=== PATIENT | female | born 1970 | race Hispanic/Latino ===

== ENCOUNTER 2020-09-27 10:41 | Emergency (ER) | payer BC ==
[2020-09-27] MEDS ORDERED: BENZONATATE 100 MG CAP PO ONE (12:02)
--- NOTE | 2020-09-27 12:45 | RAD REPORT ---
EXAM DESCRIPTION: RAD - Chest Single View - 09/27/2020 12:01 pm CLINICAL HISTORY: Cough;Congestion Chest pain. COMPARISON: Chest Single View dated 07/07/2016 FINDINGS: Portable technique limits examination quality. The lungs are grossly clear. The heart is normal in size. No displaced fractures. IMPRESSION: No acute intrathoracic process suspected.
[2020-09-27 12:53] LABS: SARS-COV-2 RT PCR NEGATIVE (NEGATIVE)
--- NOTE | 2020-09-27 13:08 | ER ---
Nurse's Notes [facility] Name: Heidy Juarez Age: 49 yrs Sex: Female : 1970 Arrival Date: 09/27/2020 Time: 10:46 Bed 5 Private MD: Diagnosis: Cough;Acute upper respiratory infection, unspecified;Viral infection, unspecified;Bronchitis, not specified as acute or chronic Presentation: 09/27 10:53 Chief complaint: Patient states: Cough, congestion, sore throat for 8 days. No fever. ll1 Diarrhea has resolved. + fatigue. Coronavirus screen: Client denies travel out of the [place] in the last 14 days. congestion, cough unrelated to allergies, diarrhea, difficulty breathing, fatigue, headache, muscle pain, runny nose, shortness of breath, sore throat, Client presents with at least one sign or symptom that may indicate coronavirus-19. Standard/surgical mask placed on the client. Ebola Screen: Patient denies travel to an Ebola-affected area in the 21 days before illness onset. Resp Distress? No respiratory distress is noted at this time. Initial Sepsis Screen: Does the patient meet any 2 criteria? HR > 90 bpm. No. Patient's initial sepsis screen is negative. Does the patient have a suspected source of infection? Yes: Productive cough/pneumonia. Risk Assessment: Do you want to hurt yourself or someone else? Patient reports no desire to harm self or others. Onset of symptoms was September 19, 2020. 10:53 Method Of Arrival: Ambulatory ll1 10:53 Acuity: MK 3 ll1 Historical: - Allergies: 10:52 No Known Allergies; ll1 - PMHx: 10:52 None; ll1 - PSHx: 10:52 Hernia repair; ; Cholecystectomy; ll1 - Immunization history:: Flu vaccine is not up to date. - Social history:: Smoking status: Patient denies any tobacco usage or history of. Screenin:48 Abuse screen: Denies threats or abuse. Denies injuries from another. Nutritional ss screening: No deficits noted. Tuberculosis screening: Never had TB. Fall Risk None identified. Assessment: 11:48 General: Appears uncomfortable, Behavior is calm, cooperative. General: Reports feeling ss ill for fatigue for x 8 days. Denies fever. Pain: Complains of pain in sore throat Pain currently is 9 out of 10 on a pain scale. Quality of pain is described as sore Pain began 8 days ago Is continuous. Neuro: Level of Consciousness is awake, alert, obeys commands, Oriented to person, place, time, situation. Cardiovascular: Capillary refill < 3 seconds is brisk in bilateral fingers. Respiratory: Reports cough that is hacking, persistent since x 8 days Airway is patent Respiratory effort is even, unlabored, Respiratory pattern is regular, symmetrical, Breath sounds are clear bilaterally. GI: Patient currently denies abdominal pain, diarrhea, nausea, vomiting. : No signs and/or symptoms were reported regarding the genitourinary system. Denies burning with urination, urinary frequency. EENT: Nares are clear Oral mucosa is moist. Throat is reddened. EENT: Reports nasal discharge that is watery x 8 days. Derm: Skin is dry, Skin is pink, warm \\T\\ dry. normal. Musculoskeletal: Circulation, motion, and sensation intact. Range of motion: intact in all extremities, Swelling absent. Vital Signs: 10:53 BP 145 / 64; Pulse 98; Resp 17; Temp 99.1; Pulse Ox 97% on R/A; Weight 104.33 kg; ll1 Height 5 ft. 3 in. (160.02 cm); Pain 9/10; 11:02 BP 131 / 52; Pulse 96; Resp 16; Temp 99.0(O); Pulse Ox 97% on R/A; mh5 12:14 BP 142 / 76; Pulse 80; Resp 18; Pulse Ox 96% on R/A; ss 10:53 Body Mass Index 40.74 (104.33 kg, 160.02 cm) ll1 ED Course: 10:46 Patient arrived in ED. rg4 10:53 Arm band placed on. ll1 10:55 Triage completed. ll1 11:00 John Marsh MD is Attending Physician. kdr 11:02 Patient has correct armband on for positive identification. Bed in low position. Call [facility] light in reach. Pulse ox on. NIBP on. 11:27 Jayleen Macias RN is Primary Nurse. ss 12:53 Flu Sent. mh5 12:53 Strep Sent. 5 12:53 COVID-19 : Document "Date of Symptom Onset" if Symptomatic. Sent. 5 12:53 CORONAVIRUS Sent. 5 12:53 Influenza Screen (A Sent. 5 13:35 No provider procedures requiring assistance completed. Patient did not have IV access vg1 during this emergency room visit. 23:01 RAD In Process Unspecified. EDMS Administered Medications: 11:46 Drug: Tessalon Perle 200 mg Route: PO; Outcome: 13:08 Discharge ordered by . kdr 13:36 Discharged to home ambulatory. vg1 13:36 Condition: stable 13:36 Discharge instructions given to patient, Instructed on discharge instructions, follow up and referral plans. medication usage, Demonstrated understanding of instructions, follow-up care, medications, Prescriptions given X 3. 13:36 Patient left the ED. vg1 Signatures: Dispatcher [employer] EDMS John aMrsh MD MD [facility] Jayleen Macias, RN RN Марина Zhang Maria Rosalia Alves, RN RN vg1 Carolyn Bowman RN RN 1
--- NOTE | 2020-09-27 13:09 | EDPHYS ---
Physician Documentation [facility] Name: Heidy Juarez Age: 49 yrs Sex: Female : 1970 Arrival Date: 09/27/2020 Time: 10:46 Bed 5 Private MD: ED Physician John Marsh HPI: 09/27 16:34 This 49 yrs old Female presents to ER via Ambulatory with complaints of Cough, kdr Congestion, Runny Nose, Sore Throat. 16:34 The patient or guardian reports airway noise, cough, that is intermittent, described as kdr mild, difficulty breathing. Onset: The symptoms/episode began/occurred gradually, 8 day(s) ago. Severity of symptoms: At their worst the symptoms were mild, moderate, just prior to arrival, in the emergency department the symptoms are unchanged. Modifying factors: The symptoms are alleviated by nothing, the symptoms are aggravated by exertion, talking. Associated signs and symptoms: Pertinent positives: chest pain, with cough, with movement, with breathing, sore throat, Pertinent negatives:. The patient has experienced similar episodes in the past, several times. The patient has not recently seen a physician. Historical: - Allergies: 10:52 No Known Allergies; ll1 - PMHx: 10:52 None; ll1 - PSHx: 10:52 Hernia repair; ; Cholecystectomy; ll1 - Immunization history:: Flu vaccine is not up to date. - Social history:: Smoking status: Patient denies any tobacco usage or history of. ROS: 16:34 Constitutional: Negative for fever, chills, and weight loss, Eyes: Negative for injury, kdr pain, redness, and discharge, Neck: Negative for injury, pain, and swelling, Abdomen/GI: Negative for abdominal pain, nausea, vomiting, diarrhea, and constipation, Back: Negative for injury and pain, : Negative for injury, bleeding, discharge, and swelling, MS/Extremity: Negative for injury and deformity, Skin: Negative for injury, rash, and discoloration, Neuro: Negative for headache, weakness, numbness, tingling, and seizure activity. Psych: Negative for depression, anxiety, suicide ideation, homicidal ideation, and hallucinations, Allergy/Immunology: Negative for hives, rash, and allergies, Endocrine: Negative for neck swelling, polydipsia, polyuria, polyphagia, and marked weight changes, Hematologic/Lymphatic: Negative for swollen nodes, abnormal bleeding, and unusual bruising. 16:34 ENT: Positive for sore throat, Negative for injury or acute deformity, ear pain. 16:34 Cardiovascular: Positive for chest pain, of the anterior aspect of right upper chest and anterior aspect of left upper chest, Negative for edema, orthopnea, palpitations, paroxysmal nocturnal dyspnea. 16:34 Respiratory: Positive for cough, with green sputum, dyspnea on exertion, shortness of breath, wheezing, Negative for hemoptysis. Exam: 16:34 Constitutional: This is a well developed, well nourished patient who is awake, alert, kdr and in no acute distress. Head/Face: Normocephalic, atraumatic. Eyes: Pupils equal round and reactive to light, extra-ocular motions intact. Lids and lashes normal. Conjunctiva and sclera are non-icteric and not injected. Cornea within normal limits. Periorbital areas with no swelling, redness, or edema. ENT: Nares patent. No nasal discharge, no septal abnormalities noted. Tympanic membranes are normal and external auditory canals are clear. Oropharynx with no redness, swelling, or masses, exudates, or evidence of obstruction, uvula midline. Mucous membranes moist. Neck: Trachea midline, no thyromegaly or masses palpated, and no cervical lymphadenopathy. Supple, full range of motion without nuchal rigidity, or vertebral point tenderness. No Meningismus. Chest/axilla: Normal chest wall appearance and motion. Nontender with no deformity. No lesions are appreciated. Cardiovascular: Regular rate and rhythm with a normal S1 and S2. No gallops, murmurs, or rubs. Normal PMI, no JVD. No pulse deficits. Abdomen/GI: Soft, non-tender, with normal bowel sounds. No distension or tympany. No guarding or rebound. No evidence of tenderness throughout. Back: No spinal tenderness. No costovertebral tenderness. Full range of motion. Skin: Warm, dry with normal turgor. Normal color with no rashes, no lesions, and no evidence of cellulitis. MS/ Extremity: Pulses equal, no cyanosis. Neurovascular intact. Full, normal range of motion. Neuro: Awake and alert, GCS 15, oriented to person, place, time, and situation. Cranial nerves II-XII grossly intact. Motor strength 5/5 in all extremities. Sensory grossly intact. Cerebellar exam normal. Normal gait. Psych: Awake, alert, with orientation to person, place and time. Behavior, mood, and affect are within normal limits. 16:34 Respiratory: the patient does not display signs of respiratory distress, Respirations: normal, Breath sounds: rhonchi, that are mild, are scattered, are located in both bases. Vital Signs: 10:53 BP 145 / 64; Pulse 98; Resp 17; Temp 99.1; Pulse Ox 97% on R/A; Weight 104.33 kg; ll1 Height 5 ft. 3 in. (160.02 cm); Pain 9/10; 11:02 BP 131 / 52; Pulse 96; Resp 16; Temp 99.0(O); Pulse Ox 97% on R/A; mh5 12:14 BP 142 / 76; Pulse 80; Resp 18; Pulse Ox 96% on R/A; ss 10:53 Body Mass Index 40.74 (104.33 kg, 160.02 cm) ll1 MDM: 13:08 Patient medically screened. [facility] 16:34 Data reviewed: vital signs, nurses notes, EMS record, lab test result(s), EKG, kdr radiologic studies. Counseling: I had a detailed discussion with the patient and/or guardian regarding: the historical points, exam findings, and any diagnostic results supporting the discharge/admit diagnosis, lab results, radiology results, the need for outpatient follow up. 09/27 11:40 Order name: Flu [facility] 09/27 11:40 Order name: Strep [facility] 09/27 11:40 Order name: COVID-19 : Document "Date of Symptom Onset" if Symptomatic. [facility] 09/27 12:18 Order name: Group A Streptococcus Rapid Sc; Complete Time: 13:06 EDMS 09/27 11:40 Order name: CXR XRAY [facility] 09/27 12:47 Order name: RAD [facility] 09/27 12:53 Order name: COVID-19/FLU A+B; Complete Time: 13:06 EDMS Administered Medications: 11:46 Drug: Tessalon Perle 200 mg Route: PO; ss Disposition: 09/27/20 13:08 Discharged to Home. Impression: Cough, Acute upper respiratory infection, unspecified, Viral infection, unspecified, Bronchitis, not specified as acute or chronic. - Condition is Stable. - Discharge Instructions: How to Use an Inhaler, Acute Bronchitis, Vaeh-iu-Xoqf, Upper Respiratory Infection, Adult, Gjnm-oi-Abcj, Cough, Adult, Lkag-sb-Ngpw, Viral Respiratory Infection, Tcjh-Kj-Gaom. - Prescriptions for Prednisone 20 mg Oral Tablet - take 1 tablet by ORAL route once daily for 5 days; 5 tablet. Tessalon Perles 100 mg Oral Capsule - take 1 capsule by ORAL route every 8 hours As needed; 20 capsule. Albuterol Sulfate 90 mcg/actuation - inhale 1-2 puff by INHALATION route every 4-6 hours; 1 Inhaler. - Medication Reconciliation Form, Thank You Letter form. - Follow up: Private Physician; When: 2 - 3 days; Reason: If symptoms return, Further diagnostic work-up, Recheck today's complaints, Continuance of care, Re-evaluation by your physician. - Problem is new. - Symptoms have improved. Signatures: Dispatcher [employer] EDMS John Marsh MD MD kdr Jayleen Macias RN RN ss Rosalia Gonzales RN RN vg1 Carolyn Bowman RN RN ll1 Corrections: (The following items were deleted from the chart) 13:36 13:08 09/27/2020 13:08 Discharged to Home. Impression: Cough; Acute upper respiratory vg1 infection, unspecified; Viral infection, unspecified; Bronchitis, not specified as acute or chronic. Condition is Stable. Forms are Medication Reconciliation Form, Thank You Letter, Antibiotic Education, Prescription Opioid Use. Follow up: Private Physician; When: 2 - 3 days; Reason: If symptoms return, Further diagnostic work-up, Recheck today's complaints, Continuance of care, Re-evaluation by your physician. Problem is new. Symptoms have improved. kdr
[2020-09-28 10:09] VITALS: BP 142/76; TEMP 99; O2SAT 96
== END 2020-09-27 13:36 | disposition home or self-care (01) ==
LOC: MERGE 10:41 → ER 10:41
DX: J40 Bronchitis, not specified as acute or chronic (principal); B34.9 Viral infection, unspecified; Z20.822 Contact with and (suspected) exposure to COVID-19
CPT/HCPCS: 87070; 87081; 0240U; 71045; 99284

== ENCOUNTER 2023-02-02 16:16 | Emergency (ER) | payer BC ==
--- OUTSIDE RECORDS SUMMARY | 2023-02-02 16:19 | XMS REPORT | Continuity of Care Document ---
:1970 Author Organization [facility] t Address [address] [place] [address] [place] [id number] Care Team Providers Name Role Phone RAINER HERNANDEZ Attending Clinician Unavailable LAB90 Attending Clinician Unavailable Rainer Hernandez DO Attending Clinician Payers Payer Name Policy Type Policy Number Effective Date Expiration Date [place] [facility] 2 [id number] 2022 00:00:00 Problems Condition Condition Condition Status Onset Resolution Last Treating Co mments Source Name Details Category Date Date Treatment Clinician Date Migraine Migraine Disease Active Kelse y with aura with aura 9 Seyb old and and 00:00: - without without 00 Externa status status l migrainosu migrainosu s, not s, not intractabl intractabl e e Seasonal Seasonal Disease Active Kelse y allergic allergic 04-04 Seybol d rhinitis rhinitis 00:00: - due to due to 00 Externa pollen pollen l Well adult Well adult Disease Active K elsey exam exam 04-04 Seybold 00:00: - 00 Externa l Allergies, Adverse Reactions, Alerts This patient has no known allergies or adverse reactions. Social History Social Habit Start Date Stop Date Quantity Comments Source History of tobacco Cigarette Smoker Carol Santana - use External History SDOH Carol brock - Alcohol Frequency Externa l History SDOH Carol brock - Alcohol Std Drinks Extract Operator al History ALEXANDRAID Carol brock - Alcohol Binge External Cigarettes smoked 2022-04-04 2022-04-04 Carol Santana - current (pack per 00:00:00 00:00:00 Externa l day) - Reported Cigarette 2022-04-04 2022-04-04 Carol Basspriyanka - pack-years 00:00:00 00:00:00 External Tobacco use and 2022-04-04 2022-04-04 Smokeless tobacco Sree andersontatum Santana - exposure 00:00:00 00:00:00 non-user External Alcohol intake 2022-04-04 2022-04-04 Current drinker Bob Basspriyanka - 00:00:00 00:00:00 of alcohol External (finding) Alcohol Comment 2022-04-04 2022-04-04 social Carol callahan - 00:00:00 00:00:00 External Education 2022-04-04 2022-04-04 16 Caroltien Santana - 00:00:00 00:00:00 External Sex [birth year] F Carol Se callahan - 00:00:00 00:00:00 External Smoking Status Start Date Stop Date Source Occasional tobacco smoker 2022-04-04 00:00:00 Sree Santana - External Medications Ordered Filled Start Stop Current Ordering Indication Dosage Frequency Signature Comments Components Source Medication Medication Date Date Medication? Clinician (SIG) Name Name Cetirizine Yes [id number] 10mg Take 1 K elsey HCl (ZyrTEC 9-13 capsule Seybo ld Allergy) 10 00:00: (10 mg - MG oral 00 total) by Externa Capsule mouth l daily FLUTICASONE Yes [id number] 50ug Use 1 K elsey PROPIONATE, 9-13 spray (50 Sey bold NASAL, 50 00:00: mcg total) - MCG/ACT 00 in each Externa nasal nostril l Suspension daily Meloxicam 2021- No 7.5mg Take 7.5 Sree jaramillo 7.5 MG oral 8-23 12-28 mg by Seybol d Tablet 00:00: 00:00 mouth - 00 :00 daily Externa l Immunizations Ordered Immunization Filled Immunization Date Status Commen ts Source Name Name Tdap- (Boostrix, 2018-09-15 Completed Carol menon Adacel) 00:00:00 - External Influenza Virus 2018-09-15 Completed Carol callahan Vaccine, Quad, Egg 00:00:00 - Exte rnal Free Procedures This patient has no known procedures. Encounters Start End Encounter Admission Attending Care Care Encounter Source Date/Time Date/Time Type Type Clinicians Facility Department ID 2022-11-04 2022-11-04 Outpatient CAROL HERNANDEZ [id number] Carol 00:00:00 00:00:00 RAINER Seybol d 2022-07-25 2022-07-25 Outpatient CAROL HERNANDEZ [id number] Carol 00:00:00 00:00:00 RAINER Seybol d 2022-07-24 2022-07-24 Outpatient LAB90 CAROL MEDINA [id number] Carol 14:30:00 14:30:00 Seybol d 2022-07-24 2022-07-24 Outpatient CAROL HERNANDEZ [id number] Carol 11:15:00 11:15:00 RAINER Seybol d 2022-04-25 2022-04-25 Outpatient CAROL HERNANDEZ [id number] Carol 14:30:00 14:30:00 RAINER Seybol d 2022-04-09 2022-04-09 Outpatient LAB90 CAROL MEDINA [id number] Carol 09:20:00 09:20:00 Seybol d 2022-04-05 2022-04-05 Outpatient CAROL HERNANDEZ [id number] Carol 00:00:00 00:00:00 RAINER Seybol d 2022-04-04 2022-04-04 Office Aleksey Hernandez [id number] Carol 14:15:00 14:45:00 Visit Rainer He [id number] Se ybold [id number] 2022-04-04 2022-04-04 Outpatient CAROL HERNANDEZ [id number] Carol 10:00:00 10:00:00 RAINER Seybol d Results This patient has no known results.
[2023-02-02] MEDS ORDERED: NA CHLORIDE 0.9% 1,000 ML ONE (17:12)
[2023-02-02] MEDS ORDERED: KETOROLAC 30 MG/ML INJ ONE (17:12)
[2023-02-02 17:18] LABS: Specific Gravity 1.011 (1.005-1.030)
[2023-02-02 17:21] LABS: Hematocrit 42.2 % (36.0-45.0); Lymphocytes % 31.4 % (15.3-44.8); MCV 83.7 fL (80-100); MPV 8.3 fL (7.6-11.3); RBC Red Blood Cell Count 5.04 M/uL (3.86-4.86)
[2023-02-02 17:22] LABS: Specific Gravity 1.011 (1.005-1.030); Urine Bacteria None Seen /HPF (<20); Urine Bilirubin NEGATIVE (Negative); Urine Blood 3+ (OVER) (Negative); Urine Clarity Clear (Clear); Urine Color Colorless (Yellow); Urine Glucose NEGATIVE (Negative); Urine Mucus Slight /HPF (None Seen); Urine Protein NEGATIVE (Negative); Urine RBC <5 /HPF (None Seen); Urine Urobilinogen Normal (Normal)
[2023-02-02 17:37] LABS: Albumin 3.5 g/dL (3.4-5.0); Bilirubin Total 0.5 mg/dL (0.2-1.0); Potassium 3.8 mEq/L (3.5-5.1); Protein, Total 7.5 g/dL (6.4-8.2)
--- NOTE | 2023-02-02 19:59 | RAD REPORT ---
EXAM DESCRIPTION: CT - Abdomen Pelvis W Contrast - 02/02/2023 7:16 pm CLINICAL HISTORY: rectal pain;Abd pain COMPARISON: CT ABD PELVIS W CONTRAST dated 10/13/2015; CT ABD PELVIS W CONTRAST dated 10/10/2014; CT A BD PELVIS W CONTRAST dated 08/24/2013 TECHNIQUE: Thin cut axial CT imaging of the abdomen and pelvis was performed following intravenous a dministration of Isovue 300. Multiplanar reformats were generated and reviewed. All CT scans are performed using dose optimization technique as appropriate and may include automated exposure control or mA/KV adjustment according to patient size. FINDINGS: No suspicious findings in the lung bases. The liver shows diffuse parenchymal hypoattenuation suggesting steatosis. Adrenal glands, spleen, and pancreas show no suspicious findings. Post cholecystectomy. Symmetric renal function is seen with no hydronephrosis or suspicious renal mass. No dilated bowel loops or bowel wall thickening. No free air, free fluid or inflammatory stranding. N o intra-abdominal adenopathy or mass. Large fat containing supraumbilical lobulated hernia, measuring 1.9 centimeter in greatest dimension at the neck, and 11.8 x 6.4 centimeter in greatest axial dimens ions. The urinary bladder is without significant finding. Hypoattenuating heterogenous ovoid mass at the cervix measuring 6.9 x 4.7 cm. Increasing fluid retent ion within the endometrium. Small right adnexal cysts are noted. No suspicious bony findings. IMPRESSION: Hypoattenuating heterogeneous ovoid mass or collection at the level of the uterine cervi x measuring 6.9 x 4.7 centimeter. Possibilities include cervical malignancy, a degenerating cervical fibroid, among other considerations. Additional evaluation by dedicated pelvic ultrasound or MRI may be helpful. Gynecologic consultation would also be recommended. Other incidental findings including a large supraumbilical ventral midline fat containing hernia, and sequelae of hepatic steatosis.
--- NOTE | 2023-02-02 21:55 | RAD REPORT ---
EXAM DESCRIPTION: US - Pelvis Complete - 02/02/2023 8:44 pm CLINICAL HISTORY: pelvic pain COMPARISON: Abdomen Pelvis W Contrast dated 02/02/2023 TECHNIQUE: Sonographic grayscale and color flow images of the pelvis were obtained flow transabdomi nal approach. FINDINGS: A large cystic lesion is present in the cervix, extending into the lower endometrial cavit y, with thin septations, and a fluid fluid level, with echogenic material in the dependent portion. T his measures 10.3 x 4.5 centimeter in greatest sagittal dimensions and 6.2 centimeter in greatest tra nsverse dimension. Uterus measures 14.2 centimeter in length. Prominent echogenic margins of the endometrium, overall me asuring 2.1 centimeter in thickness. Both ovaries are normal in size, shape and echotexture. The right ovary measures 2.9 x 2.8 x 2.9 tania timeter. Contains an anechoic 2.9 centimeter cyst. The left ovary measures 2.8 x 1.6 x 1.5 centimete r. No other ovarian or parovarian lesions. No adnexal masses. Normal Doppler blood flow was demonstrated to both ovaries. No significant pelvic ascites. IMPRESSION: Complex cystic lesion in the cervix containing fluid fluid level, with dependent echogen ic content, suggesting layering hemorrhagic content. Thin septations are present internally. This is not entirely specific, and could represent cystic degeneration of a fibroid, a complicated nabothian cyst, less likely hemorrhage within a cystic space related to adenomyosis. Incidentally noted 2.9 centimeter right ovarian cyst.
--- NOTE | 2023-02-02 22:57 | EDPHYS ---
Physician Documentation [facility] Name: Heidy Juarez Age: 52 yrs Sex: Female : 1970 Arrival Date: 02/02/2023 Time: 16:16 Bed 20 Private MD: ZULEYMA Physician Dimitry Palma HPI: 02/02 17:00 This 52 yrs old Female presents to ER via Ambulatory with complaints of Pelvic cp Pain, Rectal Pain. 17:00 The patient presents with abdominal pain in the lower abdomen, pelvic pain. cp 17:00 Onset: The symptoms/episode began/occurred this morning. The patient presents to the emergency department with pain in the rectal area. Onset: The symptoms/episode began/occurred this morning. The symptoms do not radiate. Associated signs and symptoms: Pertinent positives: vaginal bleeding, Pertinent negatives: anorexia, blood in stools, constipation, diarrhea, fever. Severity of pain: in the emergency department the pain is unchanged despite home interventions. Associate signs and symptoms: Pertinent negatives: dysuria, fever, lower GI bleeding. Patient reports known abdominal hernia and having been evaluated in the past by DR Hewitt for repair of hernia. Has been unable to f/u for surgical repair of hernia due to lack of insurance. 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 - Social history:: Smoking status: Patient reports the use of cigarette tobacco products, denies chronic smoking, but will smoke occasionally. ROS: 17:05 Constitutional: Negative for body aches, chills, fever, poor PO intake. cp 17:05 ENT: Negative for drainage from ear(s), ear pain, sore throat, difficulty swallowing, cp difficulty handling secretions. 17:05 Cardiovascular: Negative for chest pain, palpitations. 17:05 Respiratory: Negative for cough, shortness of breath, wheezing. 17:05 Abdomen/GI: Positive for abdominal pain, nausea, rectal pain, Negative for vomiting, diarrhea, constipation, black/tarry stool, rectal bleeding. 17:05 Back: Positive for radiated pain, Negative for injury or acute deformity, decreased range of motion. 17:05 : Positive for pelvic pain, Negative for hematuria, difficulty urinating, vaginal bleeding, vaginal discharge. 17:05 Neuro: Negative for altered mental status, dizziness, headache, weakness. 17:05 All other systems are negative. Exam: 17:10 Constitutional: The patient appears in no acute distress, alert, awake, cp non-diaphoretic, non-toxic, well developed, well nourished, obese, uncomfortable. 17:10 Head/Face: Normocephalic, atraumatic. cp 17:10 Eyes: Periorbital structures: appear normal, Conjunctiva: normal, no exudate, no injection, Sclera: no appreciated abnormality, Lids and lashes: appear normal, bilaterally. 17:10 ENT: External ear(s): are unremarkable, Nose: is normal, Mouth: Lips: moist, Oral mucosa: pink and intact, moist, Posterior pharynx: is normal, airway is patent, no erythema, no exudate. 17:10 Chest/axilla: Inspection: normal. 17:10 Cardiovascular: Rate: normal, Rhythm: regular. 17:10 Respiratory: the patient does not display signs of respiratory distress, Respirations: normal, no use of accessory muscles, no retractions, labored breathing, is not present, Breath sounds: are clear throughout, no decreased breath sounds, no stridor, no wheezing. 17:10 Abdomen/GI: Inspection: obese Bowel sounds: active, all quadrants, Palpation: soft, in all quadrants, moderate abdominal tenderness, in the right lower quadrant and left lower quadrant, rebound tenderness, is not appreciated, involuntary guarding, is not appreciated. 17:10 Back: pain, is absent, ROM is normal, CVA tenderness, is absent. 17:10 Skin: cellulitis, is not appreciated, no rash present. Vital Signs: 16:24 BP 140 / 63; Pulse 68; Resp 16; Temp 98.8(O); Pulse Ox 100% on R/A; Weight 108.86 kg; vg1 Height 5 ft. 3 in. ; Pain 9/10; 17:35 BP 120 / 58; Pulse 69; Resp 18; Pulse Ox 100% on R/A; db 18:30 BP 133 / 66; Pulse 64; Resp 18; Pulse Ox 100% on R/A; cm10 19:30 BP 112 / 57; Pulse 65; Resp 18; Pulse Ox 100% on R/A; cm10 20:00 BP 118 / 56; Pulse 67; Resp 18; Pulse Ox 100% on R/A; cm10 21:00 BP 114 / 60; Pulse 67; Resp 16; Pulse Ox 97% on R/A; cm10 22:00 BP 118 / 51; Pulse 73; Resp 16; Pulse Ox 100% on R/A; cm10 16:24 Body Mass Index 42.51 (108.86 kg, 160.02 cm) vg1 16:24 Pain Scale: Adult vg1 MDM: 16:35 Patient medically screened. cp 22:55 Data reviewed: vital signs, nurses notes, lab test result(s), radiologic studies, CT cp scan, ultrasound. 22:55 Differential diagnosis: hemorrhoids, fissure, abscess, pilonidal cyst, gastritis, cp non-specific abd pain, Pyelonephritis, Ureterolithiasis, urinary tract infection. Consideration of Admission/Observation Escalation of care including admission/observation considered. I considered the following discharge prescriptions or medication management in the emergency department Medications were administered in the Emergency Department. See MAR. Counseling: I had a detailed discussion with the patient and/or guardian regarding: the historical points, exam findings, and any diagnostic results supporting the discharge/admit diagnosis, lab results, radiology results, the need for outpatient follow up, an OB/Gyne specialist, to return to the emergency department if symptoms worsen or persist or if there are any questions or concerns that arise at home. Response to treatment: the patient's symptoms have mildly improved after treatment, and as a result, I will discharge patient. 02/02 16:49 Order name: CBC with Diff; Complete Time: 17:39 cp 02/02 17:39 Interpretation: Normal except: RBC 5.04; MCH 26.7; MCHC 31.9. cp 02/02 16:49 Order name: CMP; Complete Time: 17:39 cp 02/02 17:40 Interpretation: Normal except: CL 108; GLUC 111; AST 11; GLOB 4.0; A/G 0.9. cp 02/02 16:49 Order name: Lipase; Complete Time: 17:39 cp 02/02 16:49 Order name: Test, Urine; Complete Time: 17:39 cp 02/02 16:49 Order name: Urinalysis w/ reflexes; Complete Time: 17:39 cp 02/02 17:40 Interpretation: Normal except: UBLD 3+ (OVER). cp 02/02 17:15 Order name: CT Abd/Pelvis - PO and IV Contrast; Complete Time: 20:14 cp 02/02 20:19 Order name: US Pelvis Complete; Complete Time: 21:56 cp 02/02 16:49 Order name: IV Saline Lock; Complete Time: 17:00 cp 02/02 16:49 Order name: Labs collected and sent; Complete Time: 17:00 cp Administered Medications: 17:00 CANCELLED (Physician Discretion): morphine IVP or IV 4 mg IVP once over 4 mins cp 17:12 Drug: NS 0.9% IV 1000 ml Route: IV; Rate: 500 ml/hr; Site: left forearm; cm10 21:32 Follow up: IV Status: Completed infusion; IV Intake: 1000ml cm10 17:12 Drug: Ketorolac IVP 15 mg Route: IVP; Site: left forearm; cm10 18:37 Follow up: Response: No adverse reaction cm10 18:38 Not Given (Patient Refused): Ondansetron IVP 4 mg IVP once; over 2 minutes cm10 Disposition Summary: 02/02/23 22:57 Discharge Ordered Location: Home cp Problem: new cp Symptoms: have improved cp Condition: Stable cp Diagnosis - Other ovarian cysts cp - Other specified abdominal hernia without obstruction or gangrene cp Followup: cp - With: Gabriela Sainz MD - When: 1 week - Reason: pain continues Followup: cp - With: Abrahan Hewitt MD - When: 1 week - Reason: hernia Discharge Instructions: - Discharge Summary Sheet cp - Hernia, Adult cp - Ovarian Cyst cp Forms: - Medication Reconciliation Form cp - Thank You Letter cp - Antibiotic Education cp - Prescription Opioid Use cp - [email or web address] cp Prescriptions: - Diclofenac Sodium 75 mg Oral Tablet Sustained Release - take 1 tablet by ORAL route 2 times per day; 30 tablet; Refills: 0, Product cp Selection Permitted Signatures: Dispatcher [employer] EDDimitry Kamara PA PA cp Garcia, Victoria RN RN vg1 Mansi Cruz RN RN cm10 Corrections: (The following items were deleted from the chart) 17:00 16:49 morphine IVP or IV 4 mg IVP once over 4 mins ordered. cp cp
--- NOTE | 2023-02-02 22:57 | ER ---
Nurse's Notes [facility] Name: Heidy Juarez Age: 52 yrs Sex: Female : 1970 Arrival Date: 02/02/2023 Time: 16:16 Bed 20 Private MD: Diagnosis: Other ovarian cysts;Other specified abdominal hernia without obstruction or gangrene Presentation: 02/02 16:24 Chief complaint: Patient states: Rectal pain that began this morning, with N/V, BM this vg1 morning was soft "not normal", also stated lower ABD and pelvic pain; denies blood in stool. States vaginal bleeding x 10 days and last LMP was Six months ago. Coronavirus screen: Vaccine status: Patient reports receiving the 2nd dose of the covid vaccine. Client denies travel out of the [place] in the last 14 days. Ebola Screen: Patient negative for fever greater than or equal to 101.5 degrees Fahrenheit, and additional compatible Ebola Virus Disease symptoms Patient denies exposure to infectious person. Patient denies travel to an Ebola-affected area in the 21 days before illness onset. Initial Sepsis Screen: Does the patient meet any 2 criteria? No. Patient's initial sepsis screen is negative. Does the patient have a suspected source of infection? No. Patient's initial sepsis screen is negative. Risk Assessment: Do you want to hurt yourself or someone else? Patient reports no desire to harm self or others. Onset of symptoms was February 02, 2023. 16:24 Method Of Arrival: Ambulatory vg1 16:24 Acuity: MK 3 vg1 Triage Assessment: 16:27 General: Appears uncomfortable, Behavior is cooperative. Pain: Complains of pain in vg1 buttocks, right lower quadrant, left lower quadrant and pelvis Pain currently is 9 out of 10 on a pain scale. Pain began this morning. GI: Abdomen is round Stools are reported to be "soft" . Last BM was February 02, 2023. Reports nausea, vomiting. : Reports vaginal bleeding that is bright red. 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 - Social history:: Smoking status: Patient reports the use of cigarette tobacco products, denies chronic smoking, but will smoke occasionally. Screenin:[address] [facility] ED Fall Risk Assessment (Adult) History of falling in the last 3 months, cm10 including since admission No falls in past 3 months (0 pts) Confusion or Disorientation No (0 pts) Intoxicated or Sedated No (0 pts) Impaired Gait No (0 pts) Mobility Assist Device Used No (0 pt) Altered Elimination No (0 pt) Score/Fall Risk Level 0 - 2 = Low Risk Oriented to surroundings, Maintained a safe environment, Hourly rounding (assess needs \\T\\ fall precautionary measures) done. Abuse screen: Denies threats or abuse. Denies injuries from another. Nutritional screening: No deficits noted. Tuberculosis screening: No symptoms or risk factors identified. Assessment: 17:15 General: Appears in no apparent distress. uncomfortable, Behavior is calm, cooperative. cm10 Pain:. Neuro: No deficits noted. Level of Consciousness is awake, alert, Oriented to person, place, time, situation. Cardiovascular: No deficits noted. Respiratory: No deficits noted. Airway is patent Respiratory effort is even, unlabored, Respiratory pattern is regular, symmetrical. GI: Reports lower abdominal pain, upper abdominal pain, nausea. : Reports pain in suprapubic area. Derm: No deficits noted. Skin is intact, Skin is pink, warm \\T\\ dry. 17:39 Reassessment: pt ambulatory to restroom. db 17:44 Reassessment: pt finished drinking CT oral contrast. Notified CT. db 17:44 Reassessment: Patient appears in no apparent distress at this time. Patient and/or db family updated on plan of care and expected duration. Pain level reassessed. Patient is alert, oriented x 3, equal unlabored respirations, skin warm/dry/pink. family is at bedside. 19:27 Reassessment: Patient appears in no apparent distress at this time. Patient and/or cm10 family updated on plan of care and expected duration. Pain level reassessed. Patient is alert, oriented x 3, equal unlabored respirations, skin warm/dry/pink. Patient states feeling better. Patient states symptoms have improved. 21:32 Reassessment: Patient and/or family updated on plan of care and expected duration. Pain cm10 level reassessed. Patient is alert, oriented x 3, equal unlabored respirations, skin warm/dry/pink. Patient states feeling better. Patient states symptoms have improved. Vital Signs: 16:24 BP 140 / 63; Pulse 68; Resp 16; Temp 98.8(O); Pulse Ox 100% on R/A; Weight 108.86 kg; vg1 Height 5 ft. 3 in. ; Pain 9/10; 17:35 BP 120 / 58; Pulse 69; Resp 18; Pulse Ox 100% on R/A; db 18:30 BP 133 / 66; Pulse 64; Resp 18; Pulse Ox 100% on R/A; cm10 19:30 BP 112 / 57; Pulse 65; Resp 18; Pulse Ox 100% on R/A; cm10 20:00 BP 118 / 56; Pulse 67; Resp 18; Pulse Ox 100% on R/A; cm10 21:00 BP 114 / 60; Pulse 67; Resp 16; Pulse Ox 97% on R/A; cm10 22:00 BP 118 / 51; Pulse 73; Resp 16; Pulse Ox 100% on R/A; cm10 16:24 Body Mass Index 42.51 (108.86 kg, 160.02 cm) vg1 16:24 Pain Scale: Adult vg1 ED Course: 16:17 Patient arrived in ED. ts1 16:25 Dimitry Mishra PA is PHCP. cp 16:25 Dimitry Palma MD is Attending Physician. cp 16:27 Triage completed. vg1 16:27 Arm band placed on. vg1 16:42 Mansi Cruz, RN is Primary Nurse. cm10 17:00 CBC with Diff Sent. cm10 17:00 CMP Sent. cm10 17:00 Lipase Sent. cm10 17:00 Test, Urine Sent. cm10 17:00 Urinalysis w/ reflexes Sent. cm10 17:16 Pt visited by . cm10 17:16 Patient has correct armband on for positive identification. Bed in low position. Call cm10 light in reach. Side rails up X2. Pulse ox on. NIBP on. Door closed. Lights dimmed. Warm blanket given. Pillow given. 17:17 Initial lab(s) drawn, by me, sent to lab. Urine collected: clean catch specimen. cm10 Inserted saline lock: 20 gauge in left forearm, using aseptic technique. Blood collected. 19:17 CT Abd/Pelvis - PO and IV Contrast In Process Unspecified. EDMS 20:25 US at bedside. cm10 20:46 US Pelvis Complete In Process Unspecified. EDMS 22:56 Gabriela Sainz MD is Referral Physician. cp 22:56 Abrahan Hewitt MD is Referral Physician. cp 23:20 No provider procedures requiring assistance completed. IV discontinued, intact, cm10 bleeding controlled, No redness/swelling at site. Pressure dressing applied. Administered Medications: 17:00 CANCELLED (Physician Discretion): morphine IVP or IV 4 mg IVP once over 4 mins cp 17:12 Drug: NS 0.9% IV 1000 ml Route: IV; Rate: 500 ml/hr; Site: left forearm; cm10 21:32 Follow up: IV Status: Completed infusion; IV Intake: 1000ml cm10 17:12 Drug: Ketorolac IVP 15 mg Route: IVP; Site: left forearm; cm10 18:37 Follow up: Response: No adverse reaction cm10 18:38 Not Given (Patient Refused): Ondansetron IVP 4 mg IVP once; over 2 minutes cm10 Medication: 23:20 VIS not applicable for this client. cm10 Intake: 21:32 IV: 1000ml; Total: 1000ml. cm10 Outcome: 22:57 Discharge ordered by MD. cp 23:21 Discharged to home ambulatory, with family. cm10 23:21 Condition: good 23:21 Discharge instructions given to patient, Instructed on discharge instructions, follow up and referral plans. medication usage, Demonstrated understanding of instructions, follow-up care, medications, Prescriptions given X 1. 23:21 Patient left the ED. cm10 Signatures: Dispatcher [employer] EDMS Dimitry Mishra PA PA cp Garcia, Victoria RN RN vg1 Shahida Miller RN RN Sugar Fowler PAS PAS ts1 Mansi Cruz RN RN cm10
[2023-02-02 23:27] VITALS: TEMP 98.8
[2023-02-02 23:36] VITALS: BP 118/51; O2SAT 100
== END 2023-02-02 23:21 | disposition home or self-care (01) ==
LOC: ER 16:16
DX: N83.299 Other ovarian cyst, unspecified side (principal); K45.8 Other specified abdominal hernia without obstruction or gangrene; F17.210 Nicotine dependence, cigarettes, uncomplicated
CPT/HCPCS: 96361; 85025; 81001; 36415; 81025; 83690; 80053; 74177; 76856; 96374; 99284; Q9967; J7030

== ENCOUNTER 2024-04-13 16:25 | Emergency (ER) | payer BC ==
--- OUTSIDE RECORDS SUMMARY | 2024-04-13 16:28 | XMS REPORT | Continuity of Care Document ---
Author Name Unknown Address [address] [facility]. [address] th[address] Address [address] [facility] [place] [address] Care Team Providers Care Master Pilot Name Role Phone JACKSON MADRID Primary Care Physician Unavailab GLORIA Louise Attending Clinician Unavailable [email or web address] Attending Clinician Unavaila HARI Romero Attending Clinician Unavailab debora LAB90 Attending Clinician Unavailable JACKSON MADRID Attending Clinician Unavailable Jackson Madrid DO Attending Clinician [phone] [email or web address] Admitting Clinician Rene kidd Payers Payer Name Policy Type Policy Number Effective Date Expirati on Date Source [facility] - OUT OF STATE [id number] 2022 00:00:00 BCBS 2 [id number] 2022 00:00:00 Problems Condition Name Condition Details Condition Category Status Onset Date Resolution Date Last Treatment Date Treating Clinician Comments Source Type 2 diabetes mellitus with hyperglyce erik, without long-term current use of insulin Type 2 diabetes mellitus with hyperglyce erik, without long-term current use of insulin Disease Active 2021-07 00:00: 00 [facility] jeremy [facility] Migraine with aura and without status migrainosu s, not intractabl e Migraine with aura and without status migrainosu s, not intractabl e Disease Active 04-04 00:00: 00 Brigitte Seybold - Externa l Seasonal allergic rhinitis due to pollen Seasonal allergic rhinitis due to pollen Disease Active 04-04 00:00: 00 Brigitte Santana - Externa l Well adult exam Well adult exam Disease Active 04-04 00:00: 00 Brigitte Bassold - Externa l Allergies, Adverse Reactions, Alerts Allergy Name Allergy Type Status Severity Reaction(s) Onset Date Inactive Date Treating Clinician Comments Source NO KNOWN ALLERGIE S Drug Class Active [facility] Social History Social Habit Start Date Stop Date Quantity Comments Source Gender identity 2022-07-23 13:57:13 Identifies as female gender (finding) Brigitte Santana - External History of tobacco use Cigarette Smoker [facility] SDOH Alcohol Frequency Brigitte hdez - External History SDOH Alcohol Std Drinks Brigitte callahan - External History SDOH Alcohol Binge Brigitte Santana - External Tobacco use and exposure 2023-12-15 00:00:00 2023-12-15 00:00:00 Smokeless tobacco non-user [facility] Alcoholic beverage intake 2023-12-15 00:00:00 2023-12-15 00:00:00 Current drinker of alcohol (finding) [facility] History of Social function 2023-12-15 00:00:00 2023-12-15 00:00:00 [facility] Tobacco Comment 2023-12-15 00:00:00 2023-12-15 00:00:00 socially [facility] Alcohol intake 2023-03-25 00:00:00 2023-03-25 00:00:00 Current drinker of alcohol (finding) Brigitte Santana - External Cigarettes smoked current (pack per day) - Reported 2022-04-04 00:00:00 2022-04-04 00:00:00 Brigitte Santana - External Cigarette pack-years 2022-04-04 00:00:00 2022-04-04 00:00:00 Brigitte Santana - External Alcohol Comment 2022-04-04 00:00:00 2022-04-04 00:00:00 social Brigitte Santana - External Education 2022-04-04 00:00:00 2022-04-04 00:00:00 16 Brigitte Seybold - External Sex assigned at 1970 00:00:00 1970 00:00:00 [facility] Smoking Status Start Date Stop Date Source Occasional tobacco smoker 2023-12-15 00:00:00 [facility] Medications Ordered Medication Name Filled Medication Name Start Date Stop Date Current Medication? Ordering Clinician Indication Dosage Frequency Signature (SIG) Comments Components Source Gabapentin 100 MG oral Capsule 03-25 00:00: 00 Yes [id number] 100mg Take 1 capsule (100 mg total) by mouth 3 times daily. Brigitte flynn Ibuprofen (MOTRIN) 800 MG oral Tablet 02-20 00:00: 00 Yes 800mg [id number] 3D Take 1 tablet (800 mg total) by mouth 3 times daily as needed. Brigitte flynn Ibuprofen 800 MG/200ML intravenous Solution 10-19 00:00: 00 03-25 00:00 :00 No Brigitte flynn Cetirizine HCl (ZyrTEC Allergy) 10 MG oral Capsule 04-09 00:00: 00 Yes [id number] 10mg Take 1 capsule (10 mg total) by mouth daily Brigitte flynn FLUTICASONE PROPIONATE, NASAL, 50 MCG/ACT nasal Suspension 04-09 00:00: 00 Yes [id number] 50ug Use 1 spray (50 mcg total) in each nostril daily Brigitte flynn Meloxicam 7.5 MG oral Tablet 03-19 00:00: 00 07-24 00:00 :00 No 7.5mg Take 7.5 mg by mouth daily Brigitte flynn Immunizations Ordered Immunization Name Filled Immunization Name Date Status Comments Source Tdap- (Boostrix, Adacel) 2018-09-15 00:00:00 Completed Brigitte Chamberlain Influenza Virus Vaccine, Quad, Egg Free 2018-09-15 00:00:00 Completed Brigitte Chamberlain Tdap- (Boostrix, Adacel) 2018-09-15 00:00:00 Completed Brigitte Chamberlain Influenza Virus Vaccine, Quad, Egg Free 2018-09-15 00:00:00 Completed Brigitte Seybold - External TDAP Unknown Completed [facility] TDAP Unknown Completed [facility] Vital Signs Vital Name Observation Time Observation Value Comments Daron schmidt Systolic blood pressure 2023-12-15 14:12:00 116 mm[Hg] [place] [facility] Diastolic blood pressure 2023-12-15 14:12:00 62 mm[Hg] [facility] Heart rate 2023-12-15 14:12:00 64 /min [facility] Respiratory rate 2023-12-15 14:12:00 18 /min [facility] Body height 2023-12-15 14:12:00 161.3 cm [facility] Body weight 2023-12-15 14:12:00 112.492 kg [facility] BMI 2023-12-15 14:12:00 43.24 kg/m2 [facility] Systolic blood pressure 2023-03-25 18:10:00 140 mm[Hg] Brigitte Seybo ld - External Diastolic blood pressure 2023-03-25 18:10:00 77 mm[Hg] Brigitte Seybo ld - External Heart rate 2023-03-25 18:10:00 75 /min Kelse y Seybold - External Body temperature 2023-03-25 18:10:00 36.28 Jessica Brigitte Seybold - External Respiratory rate 2023-03-25 18:10:00 20 /min Brigitte Seybold - External Body height 2023-03-25 18:10:00 160 cm Mariya ey Seybold - External Body weight 2023-03-25 18:10:00 110.678 kg Mariya ey Seybold - External BMI 2023-03-25 18:10:00 43.22 kg/m2 Mariya ey Seybold - External Oxygen saturation in Arterial blood by Pulse oximetry 2023-03-25 18:10:00 97 /min Brigitte Christiansonybo ld - External Encounters Start Date/Time End Date/Time Encounter Type Admission Type Attending [facility] Care Facility Care Department Encounter ID Source 2024-03-26 00:00:00 2024-03-26 00:00:00 Outpatient GLORIA TORRES [facility] [id number] [facility] 2024-01-19 13:30:00 2024-01-19 13:30:00 Outpatient Shagufta SHANNANLOLA GLORIA [facility] [id number] [facility] 2023-12-15 09:00:00 2023-12-15 09:30:08 Office Visit Gloria Ramirez [facility] [id number] [facility] 2023-12-15 09:00:00 2023-12-15 09:30:08 Outpatient Shagufta JYOTI GLORIA [facility] [id number] [facility] 2023-05-26 00:00:00 2023-05-26 00:00:00 Outpatient [email or web address] diyala_S [facility] [id number] [facility] 2023-04-30 13:30:00 2023-04-30 13:30:00 Outpatient HARI CARRINGTON [id number] [facility] 2023-03-25 14:15:00 2023-03-25 14:15:00 Outpatient LAB90 BRIGITTE MEDINA [id number] [facility] 2023-03-25 13:30:00 2023-03-25 13:30:00 Outpatient HARI CARRINGTON [id number] [facility] 2022-11-04 00:00:00 2022-11-04 00:00:00 Outpatient JACKSON MADRID [id number] [facility] 2022-07-25 00:00:00 2022-07-25 00:00:00 Outpatient JACKSON MADRID [id number] [facility] 2022-07-24 14:30:00 2022-07-24 14:30:00 Outpatient LAB90 BRIGITTE MEDINA [id number] [facility] 2022-07-24 11:15:00 2022-07-24 11:15:00 Outpatient JACKSON MADRIDSEY [id number] Brigitte Santana 2022-04-25 14:30:00 2022-04-25 14:30:00 Outpatient JACKSON MADRID [id number] Brigitte Santana 2022-04-09 09:20:00 2022-04-09 09:20:00 Outpatient LAB90 BRIGITTE OCONNORSEY [id number] Brigitte Santana 2022-04-05 00:00:00 2022-04-05 00:00:00 Outpatient JACKSON MADRID [id number] Brigitte Santana 2022-04-04 14:15:00 2022-04-04 14:45:00 Office Visit Jackson Madrid [id number] Brigitte Christiansonlondon 2022-04-04 10:00:00 2022-04-04 10:00:00 Outpatient JACKSON MADRID BRIGITTE [id number] Brigittetien Santana Notes Date/Time Note Provider Source 2023-03-25 13:12:47 Formatting of this n ote might be different from the original. Left leg cramp, radiates up to left hip. History of injuries. Would like blood work. [facility]ais Ann [facility]
[2024-04-13 17:53] LABS: Absolute Basophils 0.1 K/uL (0-0.5); Absolute Eosinophils 0.1 K/uL (0-0.5); Absolute Lymphocytes (CBC) 3.1 K/uL (0.7-4.9); Absolute Monocytes 0.5 K/uL (0.1-1.3); Basophils % 1.2 % (0-1.3); Eosinophils % 1.2 % (0-4.4); Hematocrit 42.9 % (36.0-45.0); Hemoglobin 14.3 g/dL (12.0-15.0); Lymphocytes % 35.1 % (15.3-44.8); MCH 27.6 pg (27.0-35.0); MCHC 33.3 g/dL (32.0-36.0); MCV 82.8 fL (80-100); MPV 7.9 fL (7.6-11.3); Monocytes % 5.2 % (3.3-12.3); Neutrophils % 57.3 % (41.7-73.7); Nucleated Red Blood Cells % 0.2 % (0-0); Platelets 279 thou/uL (152-406); RBC Red Blood Cell Count 5.18 M/uL (3.86-4.86); Red Cell Distribution Width 13.8 % (12.1-15.2)
[2024-04-13 17:53] LABS: Specific Gravity 1.022 (1.005-1.030); Urine Bilirubin NEGATIVE (Negative); Urine Blood Negative (Negative); Urine Clarity Clear (Clear); Urine Color Light-Yellow (Yellow); Urine Glucose NEGATIVE (Negative); Urine Ketones NEGATIVE (Negative); Urine Microscopic Reflex YN NO UMIC; Urine Nitrite NEGATIVE (Negative); Urine Protein NEGATIVE (Negative); Urine Urobilinogen Normal (Normal)
[2024-04-13 18:27] LABS: Albumin 3.8 g/dL (3.4-5.0); Albumin/Globulin Ratio 0.8 (1.1-1.8); Anion Gap 9.1 mEq/L (5.0-15.0); Bilirubin Total 0.4 mg/dL (0.2-1.0); Globulin 4.6 g/dL (2.3-3.5); Potassium 4.1 mEq/L (3.5-5.1); Protein, Total 8.4 g/dL (6.4-8.2)
--- NOTE | 2024-04-13 19:49 | RAD REPORT ---
EXAMINATION: CT ABDOMEN AND PELVIS WITH CONTRAST CLINICAL INDICATION: Female, 53 years old. [facility] MAIN ABD PAIN IV ONLY Bed Name: IW2 TECHNIQUE: CT abdomen and pelvis was performed, after the administration of IV contrast, as per [facility]. Axial, sagittal and coronal reconstructions were obtained. One or more of the following dose reduction techniques were used: Automated exposure control, adjustment of the mA and k V according to patient size, and iterative reconstruction. Unless otherwise specified, incidental findings do not require dedicated imaging follow-up. COMPARISON: 02/02/2023 FINDINGS: LOWER CHEST: The visualized lung bases are clear. LIVER: Significant fatty liver with diffuse parenchymal hypoattenuation. Small regions of fatty spari ng near the ronald hepatis and anteriorly. No focal lesion or biliary dilation. BILIARY SYSTEM: Status post cholecystectomy. SPLEEN: Normal size. No focal lesion. PANCREAS: No mass, ductal dilation, or balaji-pancreatic fluid. ADRENALS: Normal; no mass. KIDNEYS: Normal size and contour. No hydronephrosis. URINARY BLADDER: Unremarkable. GASTROINTESTINAL TRACT: No evidence of free air, significant intra-abdominal free fluid, bowel obstru ction or abscess. APPENDIX: Normal appendix. LYMPH NODES: No lymphadenopathy. MUSCULOSKELETAL: No acute or suspicious osseous abnormality. ADDITIONAL FINDINGS: Lobulated right adnexal cystic lesion measuring 4.0 x 2.6 cm in greatest axial d imensions, mildly increased in size since the prior study. Large supraumbilical multiloculated fat containing midline hernia, measuring 12.3 x 6.1 cm in greatest axial dimensions. IMPRESSION: Mild increase in size of lobulated right adnexal cystic lesion now measuring up to 4 cm. This is favo red to be benign/physiologic nature. A follow up pelvic ultrasound may be considered 6-10 weeks to reevaluate the finding. No other acute or concerning abnormalities seen in the abdomen or pelvis. Stable large supraumbilical ventral fat-containing hernia.
--- NOTE | 2024-04-13 21:18 | EDPHYS ---
Physician Documentation [facility] Name: Heidy Juarez Age: 53 yrs Sex: Female : 1970 Arrival Date: 04/13/2024 Time: 16:25 Bed 20 Private MD: ED Physician Nate Mendoaz HPI: 04/13 22:45 This 53 yrs old Female presents to ER via Ambulatory with complaints of kb Abdominal Pain. 22:45 Pt is a 53 year old female who presents for RLQ pain that started 3-4 days ago. Denies kb any associated symptoms. Aggravated by palpation. . Historical: - Allergies: 16:43 Dilaudid; bad headhache, nausea; iw - PMHx: 16:43 acid reflux; hernia; iw - PSHx: 16:43 section; Hernia Removal; right wrist; tubal ligation; iw - Immunization history:: Adult Immunizations unknown. - Infectious Disease History:: Denies. - Social history:: Smoking status: unknown. ROS: 22:44 Constitutional: As per HPI kb Exam: 22:44 Constitutional: This is a well developed, well nourished patient who is awake, alert, kb and in no acute distress. Head/Face: Normocephalic, atraumatic. ENT: Moist Mucous membranes Cardiovascular: Regular rate Respiratory: Respirations even and unlabored. No increased work of breathing. Talking in full sentences Skin: Warm, dry with normal turgor. Normal color. MS/ Extremity: Pulses equal, no cyanosis. Neurovascular intact. Full, normal range of motion. Neuro: Awake and alert, GCS 15, oriented to person, place, time, and situation. Moves all extremities. Normal gait. 22:44 Abdomen/GI: Inspection: abdomen appears normal, Bowel sounds: normal, Palpation: soft, in all quadrants, mild abdominal tenderness, in the right upper quadrant and right lower quadrant, Vital Signs: 16:41 BP 138 / 64; Pulse 94; Resp 16; Temp 97.1; Pulse Ox 96% ; Weight 111.13 kg; Height 5 iw ft. 4 in. ; Pain 7/10; 19:20 BP 143 / 86; Pulse 84; Resp 17 S; Temp 98.2(O); Pulse Ox 98% on R/A; ha1 20:24 BP 148 / 70; Pulse 80; Resp 16 S; Pulse Ox 98% on R/A; ha1 21:32 BP 157 / 76; Pulse 84; Resp 17 S; Pulse Ox 100% on R/A; ha1 16:41 Body Mass Index 42.05 (111.13 kg, 162.56 cm) iw 16:41 Pain Scale: Adult iw MDM: 16:32 Patient medically screened. kb 22:45 Differential diagnosis: appendicitis, non-specific abd pain, Pyelonephritis, urinary kb tract infection, ovarian cyst. Data reviewed: vital signs, nurses notes. Counseling: I had a detailed discussion with the patient and/or guardian regarding the historical points, exam findings, and any diagnostic results supporting the discharge/admit diagnosis, lab results, radiology results, the need for outpatient follow up, an OB/Gyne specialist, to return to the emergency department if symptoms worsen or persist or if there are any questions or concerns that arise at home. 22:46 ED course: After reviewing results, pt states this does feel similar to previous kb ovarian cyst last year. 04/13 16:45 Order name: CBC with Diff; Complete Time: 18:29 kb 04/13 16:45 Order name: CMP; Complete Time: 18:29 kb 04/13 16:45 Order name: Lipase; Complete Time: 18:29 kb 04/13 16:45 Order name: Urinalysis w/ reflexes; Complete Time: 18:29 kb 04/13 16:45 Order name: CT Abd/Pelvis - IV Contrast Only; Complete Time: 20:02 kb 04/13 16:45 Order name: IV Saline Lock; Complete Time: 18:43 kb 04/13 16:45 Order name: Labs collected and sent; Complete Time: 18:43 kb Administered Medications: 21:31 Not Given (patient refused IV. IV DC): ns 0.9% 1000 ml IV at 1 bolus Per protocol; 1000 ha1 mL bolus Disposition Summary: 04/13/24 21:18 Discharge Ordered Notes: Location: Home kb Condition: Stable kb Diagnosis - Other ovarian cysts kb Followup: kb - With: Emergency Department - When: As needed - Reason: Worsening of condition Followup: kb - With: Private Physician - When: 2 - 3 days - Reason: Recheck today's complaints, Continuance of care, Re-evaluation by your physician Discharge Instructions: - Discharge Summary Sheet kb - Ovarian Cyst, [id number] kb Forms: - Medication Reconciliation Form kb - Antibiotic Education kb - Prescription Opioid Use kb - Patient Portal Instructions kb - Leadership Thank You Letter kb Prescriptions: - Diclofenac Sodium 75 mg Oral tablet, delayed release (enteric coated) - take 1 tablet ORAL route 2 times per day As needed; 30 tablet; Refills: 0, kb Product Selection Permitted Signatures: Dispatcher [employer] EDMS Myranda He, RUSTAM-C RUSTAM-Shyanne Cerrato, RN RN Arin Chadwick RN RN ha1 Corrections: (The following items were deleted from the chart) 16:43 16:43 Allergies: No Known Allergies; [facility] 16:46 16:46 CBC+H.LAB.BRZ ordered. EDMS EDMS 16:46 16:46 COMPREHENSIVE METABOLIC PANEL+C.LAB.BRZ ordered. EDMS EDMS 16:46 16:46 LIPASE+C.LAB.BRZ ordered. EDMS EDMS 16:46 16:46 Urinalysis+U.LAB.BRZ ordered. EDMS EDMS 16:46 16:46 Abdomen Pelvis W Con+CT.RAD.BRZ ordered. EDMS EDMS
--- NOTE | 2024-04-13 21:18 | ER ---
Nurse's Notes [facility] Name: Heidy Juarez Age: 53 yrs Sex: Female : 1970 Arrival Date: 04/13/2024 Time: 16:25 Bed 20 Private MD: Diagnosis: Other ovarian cysts Presentation: 04/13 16:41 Chief complaint: Patient states: 3-4 days pain on right side toward my pelvis , denies iw urinary symptoms, denies n/v/d. Coronavirus screen: At this time, the client does not indicate any symptoms associated with coronavirus-19. Ebola Screen: No symptoms or risks identified at this time. Initial Sepsis Screen: Does the patient meet any 2 criteria? No. Patient's initial sepsis screen is negative. Does the patient have a suspected source of infection? No. Patient's initial sepsis screen is negative. Risk Assessment: Do you want to hurt yourself or someone else? Patient reports no desire to harm self or others. Onset of symptoms was April 09, 2024. 16:41 Method Of Arrival: Ambulatory iw 16:41 Acuity: MK 3 iw Historical: - Allergies: 16:43 Dilaudid; bad headhache, nausea; iw - PMHx: 16:43 acid reflux; hernia; iw - PSHx: 16:43 section; Hernia Removal; right wrist; tubal ligation; iw - Immunization history:: Adult Immunizations unknown. - Infectious Disease History:: Denies. - Social history:: Smoking status: unknown. Screenin:13 [facility] ED Fall Risk Assessment (Adult) History of falling in the last 3 months, ph including since admission No falls in past 3 months (0 pts) Confusion or Disorientation No (0 pts) Intoxicated or Sedated No (0 pts) Impaired Gait No (0 pts) Mobility Assist Device Used No (0 pt) Altered Elimination No (0 pt) Score/Fall Risk Level 0 - 2 = Low Risk Oriented to surroundings, Maintained a safe environment, Hourly rounding (assess needs \T\ fall precautionary measures) done. Abuse screen: Denies threats or abuse. Denies injuries from another. Nutritional screening: No deficits noted. Tuberculosis screening: No symptoms or risk factors identified. Assessment: 18:00 General: Appears in no apparent distress. Behavior is calm, cooperative. Pain: ph Complains of pain in right upper quadrant and right lower quadrant. Neuro: Level of Consciousness is awake, alert, obeys commands, Oriented to person, place, time, situation. Cardiovascular: Capillary refill < 3 seconds in bilateral fingers Patient's skin is warm and dry. Respiratory: Airway is patent Respiratory effort is even, unlabored. GI: Reports lower abdominal pain, upper abdominal pain, Patient currently denies nausea, vomiting. Derm: Skin is pink, warm \T\ dry. 19:20 General: Appears comfortable, Behavior is calm, cooperative. Pain: Complains of pain in ha1 abdomen Pain does not radiate. Pain currently is 4 out of 10 on a pain scale. Quality of pain is described as crampy, Pain began suddenly. Neuro: Level of Consciousness is awake, alert, obeys commands, Oriented to person, place, time, situation. Cardiovascular: Capillary refill < 3 seconds Patient's skin is warm and dry. Respiratory: Airway is patent Respiratory effort is even, unlabored, Respiratory pattern is regular, symmetrical. GI: Abdomen is round non-distended, obese, Bowel sounds present X 4 quads. Abd is soft and non tender X 4 quads. Reports lower abdominal pain, upper abdominal pain. 20:24 Reassessment: Patient and/or family updated on plan of care and expected duration. Pain ha1 level reassessed. Patient is alert, oriented x 3, equal unlabored respirations, skin warm/dry/pink. 21:32 Reassessment: Patient and/or family updated on plan of care and expected duration. Pain ha1 level reassessed. Patient is alert, oriented x 3, equal unlabored respirations, skin warm/dry/pink. Patient states feeling better. Patient states symptoms have improved. Vital Signs: 16:41 BP 138 / 64; Pulse 94; Resp 16; Temp 97.1; Pulse Ox 96% ; Weight 111.13 kg; Height 5 iw ft. 4 in. ; Pain 7/10; 19:20 BP 143 / 86; Pulse 84; Resp 17 S; Temp 98.2(O); Pulse Ox 98% on R/A; ha1 20:24 BP 148 / 70; Pulse 80; Resp 16 S; Pulse Ox 98% on R/A; ha1 21:32 BP 157 / 76; Pulse 84; Resp 17 S; Pulse Ox 100% on R/A; ha1 16:41 Body Mass Index 42.05 (111.13 kg, 162.56 cm) iw 16:41 Pain Scale: Adult ED Course: 16:29 Patient arrived in ED. mg5 16:32 [facility] kb 16:32 Dimitry Palma MD is Attending Physician. kb 16:32 Attending Physician role handed off by Dimitry Palma MD rt 16:32 Naet Mendoza MD is Attending Physician. rt 16:43 Triage completed. iw 16:43 Arm band placed on. iw 17:33 Patient placed in an exam room, on a stretcher. ll1 17:47 Initial lab(s) drawn, by me, sent to lab. Urine collected: clean catch specimen, clear. tm3 Inserted saline lock: 22 gauge in left antecubital area, using aseptic technique. 18:42 Bia Chavez, RN is Primary Nurse. ph 19:02 CT Abd/Pelvis - IV Contrast Only In Process Unspecified. EDMS 19:13 Patient has correct armband on for positive identification. Bed in low position. Call ph light in reach. Side rails up X 1. 19:15 IV discontinued, intact, bleeding controlled, No redness/swelling at site. Pressure ha1 dressing applied. 19:21 Missed attempt(s): 20 gauge in right forearm. Bleeding controlled, band aid applied, ha1 catheter tip intact. 21:33 Provided Education on: following up with OB. ha1 21:33 No provider procedures requiring assistance completed. ha1 Administered Medications: 21:31 Not Given (patient refused IV. IV DC): ns 0.9% 1000 ml IV at 1 bolus Per protocol; 1000 ha1 mL bolus Medication: 19:13 VIS not applicable for this client. ph Outcome: 21:18 Discharge ordered by . kb 21:33 Discharged to home ambulatory, with family, ha1 21:33 Condition: stable 21:33 Discharge instructions given to patient, family, Instructed on discharge instructions, follow up and referral plans. medication usage, Demonstrated understanding of instructions, follow-up care, medications, Prescriptions given X 1, 21:42 Patient left the ED. ha1 Signatures: Dispatcher [employer] EDMS Myranda He FNP-C FNP-Jose Antonio Valentin tm3 Shyanne Espinal RN RN Bia Chavez RN RN ph Carolyn Bowman RN RN ll1 Arin Chadwick, HENRRY RN ha1 Nate Mendoza MD MD rt [place], [place] mg5 Corrections: (The following items were deleted from the chart) 16:43 16:43 Allergies: No Known Allergies; iw iw
[2024-04-13 22:07] VITALS: TEMP 98.2
[2024-04-13 22:09] VITALS: BP 157/76; O2SAT 100
== END 2024-04-13 21:42 | disposition home or self-care (01) ==
LOC: ER 16:25
DX: N83.299 Other ovarian cyst, unspecified side (principal)
CPT/HCPCS: 85025; 36415; 81003; 83690; 80053; 74177; 99284; Q9967